=== PATIENT | female | born 2000 | race Caucasian/White ===

== ENCOUNTER 2020-02-12 10:09 | Emergency (ER) | payer MEDICAID ==
[2020-02-12 10:20] VITALS: BP 134/78; PULSE 104
--- NOTE | 2020-02-12 11:00 | EDM.PDOC ---
ED HPI GENERAL MEDICAL PROBLEM - General Chief Complaint: Lower Extremity Injury/Pain Stated Complaint: [place] last night at cabin after having knee surgery Time Seen by Provider: 02/12/20 10:24 - History of Present Illness INITIAL COMMENTS - FREE TEXT/NARRATIVE: Jud is a 19 y/o female who comes to the ER with left knee pain. She is about 4 weeks post op from a left Medial Platellar Surgery that she had done at [facility]. SHe has been doing her post op PT and doing fairly well. Last night she [place] and she stepped off the golf cart and into a hole with her right leg. Her left leg then caught her weight and she feels like it was twisted. Since the incident she has had more pain and cannot bend the knee like she could before. She was wearing her knee brace and has continued to have it on. Left Knee Pain Score (Numeric/FACES): 5 - Related Data Allergies Allergy/AdvReac Type Severity Reaction Status Date / Time No Known Allergies Allergy Verified 02/12/20 10:27 Home Meds: Home Meds medroxyPROGESTERone Acetate [Depo-Provera] 150 mg IM Q90D 10/06/18 [History] DULoxetine HCl [Cymbalta] 60 mg PO DAILY 01/20/19 [History] Sulfamethoxazole/Trimethoprim [Bactrim Ds Tablet] 1 each PO BID 01/20/19 [History] Allergy Shots 1 injection IM ASDIRECTED PRN 01/21/19 [History] oxyCODONE 5 mg PO ASDIRECTED 02/12/20 [History] Past Medical History - Past Health History Medical/Surgical History: Denies Medical/Surgical History Other Gastrointestinal History: Pilonidal cyst removed on 01-21-2019. Musculoskeletal History: Reports: Back Pain, Chronic, Other (See Below) - Past Surgical History Other Musculoskeletal Surgeries/Procedures:: hip pain. left knee surgery 12/27/19 Social & Family History - Family History Family Medical History: Noncontributory - Tobacco Use Smoking Status *Q: Current Every Day Smoker Years of Tobacco use: 3 Packs/Tins Daily: 0.5 Review of Systems - Review of Systems Review Of Systems: See Below Constitutional: Reports: No Symptoms Eyes: Reports: No Symptoms Ears: Reports: No Symptoms Nose: Reports: No Symptoms Mouth/Throat: Reports: No Symptoms Respiratory: Reports: No Symptoms Cardiovascular: Reports: No Symptoms GI/Abdominal: Reports: No Symptoms Genitourinary: Reports: No Symptoms Musculoskeletal: Reports: Joint Pain (left knee) Skin: Reports: No Symptoms Neurological: Reports: No Symptoms Psychiatric: Reports: No Symptoms ED EXAM, GENERAL - Physical Exam Exam: See Below Exam Limited By: No Limitations General Appearance: Alert, WD/WN, No Apparent Distress (young adult female) Ears: Normal External Exam, Hearing Grossly Normal Nose: Normal Inspection, Normal Mucosa Throat/Mouth: Normal Lips, Normal Teeth, Normal Voice Head: Atraumatic, Normocephalic Neck: Normal Inspection Respiratory/Chest: No Respiratory Distress Cardiovascular: Regular Rate, Rhythm GI/Abdominal: Soft, Non-Tender (Female) Exam: Deferred Rectal (Female) Exam: Deferred Back Exam: Normal Inspection Extremities: Other (Note well healing surgical incisions over left knee region, ROM to 70 degrees in painful, knee stable) Neurological: Alert, Oriented, CN II-XII Intact Psychiatric: Normal Affect, Normal Mood Skin Exam: Warm, Dry, Normal Color Lymphatic: No Adenopathy Course - Vital Signs Text/Narrative:: The patient was seen by the [facility]. Xray of the left knee was ordered. 1055 Xray reviewed, no acute fx or dislocation noted. Discussed findings with patient. Will have her continue with knee brace as prescribed by Ortho/PT. Will have her use APAP/ibuprofen prn for pain. Questions answered. She was given discharge instructions and left the ER in stable condition. Last Recorded V/S: Last Vital Signs Temp 37.2 C 02/12/20 10:12 Pulse 104 H 02/12/20 10:12 Resp 16 02/12/20 10:12 BP 134/78 02/12/20 10:12 Pulse Ox 98 02/12/20 10:12 - Orders/Labs/Meds Orders: Active Orders 24 hr Category Date Time Status Knee 3V Lt [CR] Stat Exams 02/12/20 10:29 Taken - Radiology Interpretation Free Text/Narrative:: XR Left Knee 3V=no acute fx (See final radiology report) Departure - Departure Time of Disposition: 10:59 Disposition: Home, Self-Care 01 Condition: Good Clinical Impression: S/P knee surgery Left knee pain Qualifiers: Chronicity: acute Qualified Code(s): M25.562 - Pain in left knee - Discharge Information *PRESCRIPTION DRUG MONITORING PROGRAM REVIEWED*: No *COPY OF PRESCRIPTION DRUG MONITORING REPORT IN PATIENT CANDI: No Instructions: Acute Knee Pain, Adult, [id number] Additional Instructions: -Acetaminophen 1000mg oral very 6 hours as needed for pain (OTC) -Ibuprofen 600mg oral every 6 hours as needed for pain (OTC) -Continue Oxycontin Rx as prescribed by Ortho -Apply ice as needed to the left knee. -Continue wearing your brace as instructed by Ortho/PT. -If the pain persists, you should go into [facility] on Friday for a recheck prior to your scheduled post op Ortho appt. -Keep your PT session as scheduled -Return to the ER as needed Sepsis Event Note (ED) - Evaluation Sepsis Screening Result: No Definite Risk - Focused Exam Vital Signs: Vital Signs Temp Pulse Resp BP Pulse Ox 02/12/20 10:12 37.2 C 104 H 16 134/78 98 - My Orders Last 24 Hours: My Active Orders 02/12/20 10:29 Knee 3V Lt [CR] Stat - Assessment/Plan Last 24 Hours: My Active Orders 02/12/20 10:29 Knee 3V Lt [CR] Stat
--- NOTE | 2020-02-12 11:02 | CR ---
[id number] RAD/RAD Knee Left 3V EXAM: 3 VIEWS LEFT KNEE. INDICATION: FELL IN A HOLE AND TWISTED LEFT KNEE; STATUS POST COMPARISON: None. DISCUSSION: No fracture, dislocation or other acute osseous abnormality. Trace left knee joint effusion. IMPRESSION: 1. No acute osseous abnormalities. Yovany Koehelr DO 02/12/20 1100 Thank you for allowing us to participate in the care of your patient.
== END 2020-02-12 11:09 | disposition home or self-care (01) ==
LOC: VM.ED 10:09
DX: M25.562 Pain in left knee (principal); F17.210 Nicotine dependence, cigarettes, uncomplicated; Z98.890 Other specified postprocedural states
CPT/HCPCS: 73562-LT; 99283-25; 99283-GF